=== PATIENT | female | born 1950 | race Two or more races ===

== ENCOUNTER 2016-11-11 20:52 | Emergency (ER) | payer OTHER ==
[~2016-11-11] VITALS: Ht 154.9 cm; Wt 59.0 kg
[2016-11-11 21:29] LABS: Basophils # (auto) 0 uL; Basophils % (auto) 0.2 % (0.0-2.0); Eosinophils # (auto) 0 uL; Hematocrit 41.6 % (36.0-46.0); Hemoglobin 13.8 g/dL (12.2-16.2); Lymphocytes # (auto) 0.1 uL; Lymphocytes % (auto) 2.2 % (10.0-50.0); Mean Corpuscular Hemoglobin 33.2 pg (28.0-32.0); Mean Corpuscular Hgb Conc. 33.3 g/dL (32.0-36.0); Mean Corpuscular Volume 99.8 fL (80.0-100.0); Mean Platelet Volume 7.9 fL (7.4-10.4); Monocytes # (auto) 0 uL; Monocytes % (auto) 0.6 % (0.0-12.0); Neutrophils # (auto) 4.4 uL; Platelet Count (auto) 348 10^3/uL (140-450); Red Cell Distribution Width 17.8 % (11.6-16.0); White Blood Cell 4.5 10^3/uL (4.4-10.8)
[2016-11-11 21:57] LABS: Albumin 3.1 g/dL (3.4-5.0); Anion Gap 11 (5-15); Aspartate Aminotransferase 98 U/L (15-37); BUN/Creatinine Ratio 27.5; Blood Urea Nitrogen 11 mg/dL (7-18); Calcium 8.4 mg/dL (8.5-10.1); Carbon Dioxide 27 mmol/L (21-32); Chloride 97 mmol/L (98-107); GFR African American 205 mL/min; GFR Non-African American 169 mL/min; Glucose 118 mg/dL (74-106); Potassium 4.5 mmol/L (3.5-5.1); Sodium 135 mmol/L (136-145)
[2016-11-11 22:02] LABS: Alkaline Phosphatase 273 U/L (45-117); Bilirubin, Total 1.3 mg/dL (0.2-1.0); Total Protein 6.6 g/dL (6.4-8.2)
[2016-11-11] MEDS ORDERED: DEX4I PO (22:12)
[2016-11-11 22:19] LABS: Urine Bilirubin Negative (Negative); Urine Blood Negative /uL (Negative); Urine Color Yellow (Yellow); Urine Glucose Normal (Normal); Urine Ketone Negative (Negative); Urine Mucus FEW (None Seen); Urine RBC 1 /hpf (0 - 4); Urine Squamous Epithelial Cell FEW /hpf (<5); Urine pH 6.5 (5.0-8.0)
[2016-11-11 22:23] LABS: Magnesium 2.3 mg/dL (1.6-2.6)
[2016-11-11 22:35] LABS: Urine Nitrite POSITIVE (Negative)
[2016-11-11 23:22] LABS: INR 0.99 (0.9-1.15); Partial Thromboplastin Time 26.9 sec (22.64-33.71); Prothrombin Time 10.8 sec (9.37-12.3)
[2016-11-12] MEDS ORDERED: SODIUM CHLORIDE 0.9% 1,000 ML IV ONE (00:45)
[2016-11-12 01:29] LABS: B-Type Natriuretic Peptide 54.2 pg/mL (0-100); Temperature: 22.7 C (20.0-25.0)
[2016-11-12] MEDS ORDERED: ONDANSETRON HCL 4 MG/2 ML VIAL ONE (02:44)
[2016-11-12] MEDS ORDERED: ONDANSETRON HCL 4 MG/2 ML VIAL IV ONE (03:00)
[2016-11-12] MEDS: SODIUM CHLORIDE 0.9% 1,000 ML IV SCH ×3 (05:11→21:22)
[2016-11-12] MEDS: FAMOTIDINE (10MG/ML) 2ML VL IV SCH ×2 (05:16→17:19)
[2016-11-12] MEDS ORDERED: cefTRIAXone 1GM/50ML D5W 50 ML IV ONE (05:30)
[2016-11-12] MEDS ORDERED: ENOXAPARIN SOD 40 MG/0.4 ML SYRINGE SC SCH (10:00)
[2016-11-12] MEDS ORDERED: PANTOPRAZOLE SODIUM 40 MG/10 ML VIAL IV SCH (10:00)
[2016-11-12] MEDS: ERYTHROMY OPTH OINT 5mg/gm 1gm OP SCH ×4 (12:23→23:22)
[2016-11-12] MEDS: ONDANSETRON HCL 4 MG/2 ML VIAL IV PRN ×2 (14:00→19:06)
[2016-11-12] MEDS: MORPHINE SULF INJ 2 MG/ML SYRINGE 1ML IV PRN ×2 (14:00→19:06)
[2016-11-12] MEDS ORDERED: IOHEXOL 350 MG/ML 100ML IJ ONE (16:07)
[2016-11-12] MEDS ORDERED: fentaNYL 75MCG/HR 75 MCG/HR PAT TD SCH (17:00)
[2016-11-12] MEDS ORDERED: hydrALAZINE HCL 20 MG/ML VL IV ONE (21:45)
[2016-11-12] MEDS ORDERED: HALOPERIDOL LACTATE 5 MG/ML INJ VIAL IM ONE (23:15)
[2016-11-13] MEDS ORDERED: LORazepam 2MG/ML-1ML VIAL IV ONE (00:45)
[2016-11-13 02:12] VITALS: BP 101/53
[2016-11-13] MEDS ORDERED: cefTRIAXone 1GM/50ML D5W 50 ML IV SCH (09:00)
== END 2016-11-12 05:00 | disposition home or self-care (01) ==
LOC: EDBD 20:52 → ER 20:58 → OVERFLOW 20:59 → UNDOADMIN 20:59
DX: K29.70 Gastritis, unspecified, without bleeding (principal); J90 Pleural effusion, not elsewhere classified; E86.0 Dehydration; C34.90 Malignant neoplasm of unspecified part of unspecified bronchus or lung; C78.00 Secondary malignant neoplasm of unspecified lung; R41.82 Altered mental status, unspecified
CPT/HCPCS: 36415; 51702; 70450; 71010; 71275; 74176; 80053; 81001; 82140; 82150; 83690; 83735; 83880; 84484; 85025; 85379; 85610; 85730; 87040; 87086; 93005; 96361; 96365; 96372; 96375; 96376; 99285; C9113; J0360; J0696; J1630; J1650; J2270; J2405; J3490; J7030; Q9967; 96374